=== PATIENT | male | born 1965 | race Caucasian/White ===

== ENCOUNTER → 2018-06-03 | Day surgery (SDC) | payer OTHER ==
[~2018-06-03] VITALS: Ht 172.7 cm; Wt 97.5 kg
[2018-06-03 08:36] VITALS: BP 146/96
[2018-06-03 14:37] VITALS: BP 133/80
== END | disposition home or self-care (01) ==
LOC: DS 07:33 → OR 10:30
PROVIDERS: Neuromusculoskeletal Medicine, Sports Medicine
PROC: 3E0233Z Introduction of Anti-inflammatory into Muscle, Percutaneous Approach (ICD-10-PCS; 2018-06-03)
PROC: 0LN70ZZ Release Right Hand Tendon, Open Approach (ICD-10-PCS; principal; 2018-06-03 10:30)
DX: M65.341 Trigger finger, right ring finger (principal); M65.9 Synovitis and tenosynovitis, unspecified; E78.5 Hyperlipidemia, unspecified; E66.9 Obesity, unspecified; Z68.32 Body mass index [BMI] 32.0-32.9, adult
CPT/HCPCS: J0690; J1030; J2250; J3010; J3490; J7120; Q0092